=== PATIENT | female | born 1975 | race Caucasian/White ===

== ENCOUNTER 2018-05-08 11:30 | Emergency (ER) | payer SELFPAY, BC ==
[2018-05-08] MEDS ORDERED: LORAZEPAM 1 MG TAB PO (13:00)
== END 2018-05-08 14:41 | disposition home or self-care (01) ==
LOC: E/R 11:30
DX: F41.0 Panic disorder [episodic paroxysmal anxiety] (principal); R40.2142 Coma scale, eyes open, spontaneous, at arrival to emergency department; R40.2252 Coma scale, best verbal response, oriented, at arrival to emergency department; R40.2362 Coma scale, best motor response, obeys commands, at arrival to emergency department; F17.210 Nicotine dependence, cigarettes, uncomplicated
CPT/HCPCS: 81025; 82962; 93005; 99283-25